=== PATIENT | female | born 1960 | race Caucasian/White ===

== ENCOUNTER → 2017-07-30 | Outpatient (CLI) | payer OTHER ==
[~2017-07-30] MED LIST: ACCUNEB SO1.25 MG/1; ADVAIR 250-501 EACH; AMITIZA 24 MCG24 MC1; ASTELIN; CALCIUM + D3; CLARITIN-D 24 H1 TA1; DESYREL100 MG; EFFEXOR XR150 MG; ESTRACE1 MG; FIBER CHOICE1 EACH; FISHOIL; FLEXERIL; LAMICTAL XR200 MG; LASIX 40 MG TAB40 M1; LIPITOR10 MG; MULTIVITAMINS; NORCO 5-325 TA1 EACH PO; PREVACID 30MG C30 M1 PO; RELAFEN500 MG; TRICOR145 MG; VALIUM2 MG; ZOFRAN ODT4 MG PO; ZOVIRAX 5% CR2 G1
== END ==
LOC: RAD 11:16
DX: Z12.31 Encounter for screening mammogram for malignant neoplasm of breast (principal)

== ENCOUNTER → 2018-04-14 | Outpatient (CLI) | payer OTHER ==
--- NOTE | 2018-04-14 14:05 | 2DMMODE ---
[facility] [place] [address] 2 D/M-MODE ECHOCARDIOGRAM Name: DEVORAH WHALEN Room #: [facility] [id number] ������������� Admission: 04/14/18 ������������� Attend Phys: Brodeirck Mahmood, Discharge: ��� ������������� ��� Date of : 56 Date of Service: 04/14/18 1405 �� Report #: [id number] �������� ��������������������������������������������[id number] THIS REPORT FOR: //name// APPROVED REPORT Study performed: 04/14/2018 13:17:49 EXAM: Comprehensive 2D, Doppler, and color-flow Echocardiogram Patient Location: Out-Patient Status: routine BSA: 1.93 HR: 83 bpm BP: 112/78 mmHg Rhythm: NSR Other Information Study Quality: Good Indications Evaluate for pulmonary HTN. Hx: COPD, short of breath, HLP 2D Dimensions RVDd: 29.69 mm IVSd: 10.06 (7-11mm) LVOT Diam: 20.04 (18-24mm) LVDd: 47.94 mm PWd: 9.84 (7-11mm) Ascending Ao: 30.69 (22-36mm) LVDs: 27.85 (25-40mm) Aortic Root: 35.06 mm Volumes Left Atrial Volume (Systole) Single Plane 4CH: 40.06 mL Single Plane 2CH: 52.02 mL LA ESV Index: 26.00 mL/m2 Aortic Valve AoV Peak Xiang.: 1.56 m/s AO Peak Gr.: 9.73 mmHg LVOT Max P.01 mmHg LVOT Max V: 1.23 m/s MICHELLE Vmax: 2.48 cm2 Mitral Valve E/A Ratio: 0.8 MV Decel. Time: 254.14 ms MV E Max Xiang.: 1.06 m/s [facility] [address] [address] 2 D/M-MODE ECHOCARDIOGRAM Name: MARLEEDEVORAH KOSSUTH [facility] [id number] ������������� Admission: 04/14/18 ������������� Attend Phys: Broderick Mahmood, Discharge: ��� ������������� ��� Date of : 56 Date of Service: 04/14/18 1405 �� Report #: [id number] �������� ��������������������������������������������[id number] MV A Xiang.: 1.25 m/s MV PHT: 73.70 ms IVRT: 83.04 ms Pulmonary Valve PV Peak Xiang.: 0.96 m/s PV Peak Gr.: 3.72 mmHg Pulmonary Vein P Vein S: 0.65 m/s P Vein A: 0.29 m/s P Vein D: 0.49 m/s P Vein A Dur.: 72.7 msec P Vein S/D Ratio: 1.33 Tricuspid Valve TR Peak Xiang.: 1.75 m/s RAP Estimate: 5.00 mmHg TR Peak Gr.: 12.25 mmHg PA Pressure: 17.00 mmHg Left Ventricle The left ventricle is normal size. There is normal LV segmental wall motion. There is normal left ventricular wall thickness. Left ventricular systolic function is normal. LVEF is 60-65%. Mild diastolic dysfunction is present (impaired relaxation pattern). Right Ventricle The right ventricle is normal size. The right ventricular systolic function is normal. Atria The left atrium size is normal. The right atrium size is normal. Aortic Valve The aortic valve is normal in structure. No aortic regurgitation is present. There is no aortic valvular stenosis. Mitral Valve The mitral valve is normal in structure. Moderate mitral regurgitation. Tricuspid Valve The tricuspid valve is normal in structure. Trace tricuspid regurgitation. Estimated PAP is 17mmHg. Pulmonic Valve The pulmonary valve is normal in structure. Mild pulmonic [address] [address] 2 D/M-MODE ECHOCARDIOGRAM Name: DEVORAH WHALEN BAO Room #: [facility] [id number] ������������� Admission: 04/14/18 ������������� Attend Phys: Broderick Mahmood, Discharge: ��� ������������� ��� Date of : 56 Date of Service: 04/14/18 1405 �� Report #: [id number] �������� ��������������������������������������������[id number] regurgitation. Great Vessels The aortic root is normal in size. The ascending aorta is normal in size. IVC is normal in size and collapses >50% with inspiration. Pericardium There is no pericardial effusion. <Conclusion> The left ventricle is normal size. LVEF is 60-65%. The right ventricle is normal size. The right ventricular systolic function is normal. The aortic valve is normal in structure. The mitral valve is normal in structure. Moderate mitral regurgitation. The tricuspid valve is normal in structure. Trace tricuspid regurgitation. Estimated PAP is 17mmHg. The pulmonary valve is normal in structure. Mild pulmonic regurgitation. There is no pericardial effusion. ��������������������������������������������� <ELECTRONICALLY SIGNED> ���������������������������������������� By: Johnathon Jah MD ��������������������������������������������� 04/14/18 1405 1405 1405 Johnathon Jha MD /INF
== END ==
LOC: CV 04-08 11:35
DX: I34.0 Nonrheumatic mitral (valve) insufficiency (principal); J98.4 Other disorders of lung; I27.20 Pulmonary hypertension, unspecified; Z88.8 Allergy status to other drugs, medicaments and biological substances

== ENCOUNTER → 2019-11-11 | Outpatient (CLI) | payer OTHER | LOC: RAD 10:05 | PROVIDERS: ATTEND Internal Medicine | DX: Z12.31 Encounter for screening mammogram for malignant neoplasm of breast (principal); J45.40 Moderate persistent asthma, uncomplicated ==

== ENCOUNTER → 2020-06-23 | Outpatient (CLI) | payer OTHER | LOC: CAT 04-14 08:56 | PROVIDERS: ATTEND Internal Medicine | DX: Z12.2 Encounter for screening for malignant neoplasm of respiratory organs (principal); I70.0 Atherosclerosis of aorta; J84.10 Pulmonary fibrosis, unspecified; J98.4 Other disorders of lung; R91.1 Solitary pulmonary nodule; Z87.891 Personal history of nicotine dependence ==